=== PATIENT | female | born 1980 | race Caucasian/White ===

== ENCOUNTER 2017-10-29 11:12 | Emergency (ER) | payer BC ==
[~2017-10-29] VITALS: Ht 157.5 cm; Wt 97.1 kg
[2017-10-29 11:20] VITALS: BP_SYST 129
[2017-10-29] MEDS ORDERED: NS 500 ML IV ONE (12:00)
[2017-10-29 12:18] LABS: BASOPHILS % (AUTO) 0.4 % (0.0-2.0); EOSINOPHILS # (AUTO) 0.2 K/uL (0.0-0.4); EOSINOPHILS % (AUTO) 4.1 % (0.0-4.0); HEMOGLOBIN 14.9 g/dL (12.0-16.0); LYMPHOCYTES # (AUTO) 1.8 K/uL (1.0-5.5); LYMPHOCYTES % (AUTO) 34.3 % (20.5-51.5); MEAN CORPUSCULAR HEMOGLOBIN 28 pg (27-31); MEAN CORPUSCULAR HGB CONC 32 % (32-36); MEAN CORPUSCULAR VOLUME 86 fL (79.0-98.0); MONOCYTES # (AUTO) 0.3 K/uL (0.0-1.0); MONOCYTES % (AUTO) 6.6 % (1.7-9.3); NEUTROPHILS # (AUTO) 2.9 K/uL (1.8-7.7); NEUTROPHILS % (AUTO) 54.6 % (40.0-70.0); PLATELET COUNT (AUTO) 194 K/uL (130-430); RED BLOOD CELL COUNT(AUTO) 5.38 MIL/uL (4.2-6.2); RED CELL DISTRIBUTION WIDTH 12.6 % (9.0-15.0); WHITE BLOOD COUNT (AUTO) 5.2 K/uL (4.8-10.8)
[2017-10-29 12:21] LABS: INFLUENZA A&B ANTIGEN SCREEN NEGATIVE FOR A & B (NEGATIVE)
[2017-10-29] MEDS ORDERED: methylPREDNISolone SOD SUCC/PF 62.5 MG/ML VIAL IVP ONE (12:30)
[2017-10-29] MEDS ORDERED: IPRATROPIUM BROM 0.5 MG/2.5 ML VIAL.NEB (ATROVENT) IH ONE (12:30)
[2017-10-29] MEDS ORDERED: ALBUTEROL SULFATE 0.083% 2.5 MG/3 ML VIAL.NEB IH ONE (12:30)
[2017-10-29 12:31] LABS: STREPTOCOCCUS A SCREEN (RAPID) NEGATIVE (NEGATIVE)
[2017-10-29 12:36] LABS: CALCIUM 9.1 mg/dL (8.4-11.0); CREATININE 0.63 mg/dL (0.55-1.30)
[2017-10-29 12:41] LABS: ALBUMIN 3.6 g/dL (3.4-4.8); TOTAL BILIRUBIN 0.3 mg/dL (0.0-1.0)
[2017-10-29 12:43] LABS: BILIRUBIN,URINE NEGATIVE (NEGATIVE); BLOOD, URINE 1+ (NEGATIVE); CLARITY/URINE CLEAR (CLEAR); COLOR,URINE YELLOW (YELLOW); GLUCOSE,URINE NEGATIVE (NEGATIVE); KETONES,URINE NEGATIVE (NEGATIVE); LEUKOCYTE ESTERASE ,URINE NEGATIVE (NEGATIVE); NITRITE, URINE NEGATIVE (NEGATIVE); PROTEIN URINE NEGATIVE (NEGATIVE)
[2017-10-29 13:07] LABS: BACTERIA,URINE FEW /HPF (None Seen); WBC,URINE 0-3 /HPF (0-3)
[2017-10-29] MEDS ORDERED: IBUPROFEN 800 MG TABLET PO ONE (13:15)
[2017-10-29 13:41] VITALS: BP_SYST 131
== END 2017-10-29 13:38 | disposition home or self-care (01) ==
LOC: SED 11:12
DX: B34.9 Viral infection, unspecified (principal); J02.9 Acute pharyngitis, unspecified; R11.2 Nausea with vomiting, unspecified; J45.909 Unspecified asthma, uncomplicated
CPT/HCPCS: 36415; 80053; 81000; 81025; 85025; 86403; 86710; 87081; 94640; 96374; 99284; J2930; J7040

== ENCOUNTER 2020-01-25 22:26 | Emergency (ER) | payer SELFPAY ==
[~2020-01-25] VITALS: Ht 157.5 cm; Wt 94.3 kg
[2020-01-25 22:35] VITALS: BP_SYST 144
--- NOTE | 2020-01-25 22:35 | NUR ---
Patient to ER bed 6 to gown for evaluation. Side rails up.
--- NOTE | 2020-01-25 22:36 | NUR ---
PATIENT CAME FROM HOME A&O X4 COMPLAINING OF RIGHT KNEE PAIN AND TINGING DOWN RIGHT LEG THAT STARTED A COUPLE HOURS AGO WHILE WALKING UP HER STAIRS. PAIN IS A 8 OUT OF 10. PATIENT REPORTS FEELING WEAK ALL OVER THE PAST COUPLE DAYS WITH CHEST PRESSURE AND SOB, SHARP SHOULDER PAIN. PATIENT REPORTS HAVING A HEADACHE EARLIER TODAY. PATIENT STATES SHE STARTED WORKING OUT A COUPLE WEEKS AGO AND BEEN TRYING TO EAT HEALTHIER, AND THE KNEE PAIN MAY BE FROM SQUATS. PATIENT DENIES FEVER, COUGH, VOMITING, DIARRHEA. PATIENT HAS EPISODES OF NAUSEA AND BLURRY VISION. PT HX ASTHMA. DENIES TAKING ANY MEDICATIONS TODAY.
--- NOTE | 2020-01-25 23:14 | NUR ---
ER Dr. Welch at bedside examining patient.
--- NOTE | 2020-01-26 | NUR ---
Pt resting in ED bed, No distress
[2020-01-26 01:18] LABS: BASOPHILS % (AUTO) 0.5 % (0.0-2.0); EOSINOPHILS # (AUTO) 0.3 K/uL (0.0-0.4); EOSINOPHILS % (AUTO) 3.5 % (0.0-4.0); HEMATOCRIT 39.6 % (36-48); HEMOGLOBIN 13.2 g/dL (12.0-16.0); LYMPHOCYTES # (AUTO) 2.8 K/uL (1.0-5.5); LYMPHOCYTES % (AUTO) 37.4 % (20.5-51.5); MEAN CORPUSCULAR HEMOGLOBIN 30 pg (27-31); MEAN CORPUSCULAR HGB CONC 33 % (32-36); MEAN CORPUSCULAR VOLUME 90 fL (79.0-98.0); MONOCYTES # (AUTO) 0.5 K/uL (0.0-1.0); MONOCYTES % (AUTO) 7.1 % (1.7-9.3); NEUTROPHILS # (AUTO) 3.9 K/uL (1.8-7.7); NEUTROPHILS % (AUTO) 51.5 % (40.0-70.0); PLATELET COUNT (AUTO) 161 K/uL (130-430); RED BLOOD CELL COUNT(AUTO) 4.42 MIL/uL (4.2-6.2); WHITE BLOOD COUNT (AUTO) 7.6 K/uL (4.8-10.8)
[2020-01-26 01:24] LABS: ANION GAP 5 (5-15); CALCIUM 8.5 mg/dL (8.4-11.0); CHLORIDE 106 mmol/L (98-107); CREATININE 0.84 mg/dL (0.55-1.30); GLUCOSE 100 mg/dL (70-99); POTASSIUM 3.7 mmol/L (3.5-5.1); SODIUM SERUM 141 mmol/L (136-145); UREA NITROGEN, BLOOD 13 mg/dL (8-21)
[2020-01-26 01:33] LABS: ALANINE AMINOTRANSFERASE 43 U/L (12-78); ALBUMIN 3.5 g/dL (3.4-4.8); ASPARTATE AMINOTRANSFERASE 19 U/L (10-37); TOTAL BILIRUBIN 0.4 mg/dL (0.0-1.0)
[2020-01-26 01:40] LABS: GFR AFRICAN AMERICAN 96 mL/min (>90)
--- NOTE | 2020-01-26 02:00 | NUR ---
Pt resting in ED bed, No acute distress
[2020-01-26 04:15] VITALS: BP_SYST 138
[2020-01-26] MEDS ORDERED: KETOROLAC TROMETHAMINE 30 MG VIAL IM ONE (04:15)
--- NOTE | 2020-01-26 04:30 | NUR ---
Patient given written and verbal discharge instructions and verbalizes understanding. ER MD discussed with patient the results and treatment provided. Patient in stable condition. ID arm band removed. No IV Rx of Sidney 5/325, Ibuprofen given. Patient educated on pain management and to follow up with PMD. Pain Scale 0/10. Opportunity for questions provided and answered. Medication side effect fact sheet provided.
== END 2020-01-26 04:15 | disposition home or self-care (01) ==
LOC: SED 22:26
DX: S83.8X1A Sprain of other specified parts of right knee, initial encounter (principal); S13.8XXA Sprain of joints and ligaments of other parts of neck, initial encounter; R06.00 Dyspnea, unspecified; J45.909 Unspecified asthma, uncomplicated; Z20.828 Contact with and (suspected) exposure to other viral communicable diseases; X50.0XXA Overexertion from strenuous movement or load, initial encounter; Y93.89 Activity, other specified; Y92.89 Other specified places as the place of occurrence of the external cause; Y99.8 Other external cause status
CPT/HCPCS: 29505; 71045; 73564; 80053; 84484; 85025; 85379; 93005; 99285; U0003

== ENCOUNTER 2020-02-19 13:23 | Emergency (ER) | payer BC ==
[~2020-02-19] VITALS: Ht 157.5 cm; Wt 95.3 kg
[2020-02-19 13:25] VITALS: BP_SYST 131
--- NOTE | 2020-02-19 14:51 | NUR ---
CALLED FOR BED PLACEMENT, UNABLE TO LOCATE PT.
--- NOTE | 2020-02-19 15:02 | NUR ---
CALLED FOR BED PLACEMENT, UNABLE TO LOCATE PT AT THIS TIME.
--- NOTE | 2020-02-19 15:21 | NUR ---
THIRD CALL FOR BED PLACEMENT, UNABLE TO LOCATE PATIENT
== END 2020-02-19 15:21 | disposition left against medical advice (07) ==
LOC: SED 13:23
DX: R07.81 Pleurodynia (principal); Z53.21 Procedure and treatment not carried out due to patient leaving prior to being seen by health care provider
CPT/HCPCS: 71045; 71100